=== PATIENT | female | born 1950 | race Caucasian/White ===

== ENCOUNTER 2017-12-19 19:33 | Emergency (ER) | payer OTHER ==
[2017-12-19] MEDS: KETOROLAC 60 MG/2 ML INJ. IM ×2 (20:30)
== END 2017-12-19 20:44 | disposition home or self-care (01) ==
LOC: ER 20:44
DX: S63.501A Unspecified sprain of right wrist, initial encounter (principal); F17.210 Nicotine dependence, cigarettes, uncomplicated; Z88.5 Allergy status to narcotic agent; X50.0XXA Overexertion from strenuous movement or load, initial encounter; Y93.89 Activity, other specified; Y92.89 Other specified places as the place of occurrence of the external cause; Y99.8 Other external cause status
CPT/HCPCS: 29125; 73110; 99284-25